=== PATIENT | male | born 1960 | race Caucasian/White ===

== ENCOUNTER 2020-05-11 07:30 | Inpatient (IN) | payer MEDICARE, OTHER ==
[2020-05-17 15:50] LABS: COVID AG,FIA SOURCE NASOPHARYNGEAL
[2020-05-18] MEDS ORDERED: RINGERS SOLUTION,LACTATED 1,000 ML IV ONE ×3 (06:00→08:09)
[2020-05-18] MEDS ORDERED: SODIUM CL IRRIG SOLN BAG 3,000 ML IRRIG ONE (06:39)
[2020-05-18] MEDS ORDERED: TRANEXAMIC ACID 1,000 MG/10 ML VIAL ONE (06:40)
[2020-05-18] MEDS ORDERED: BUPIVACAINE HCL/PF 0.5% 30 ML VIAL ONE (06:41)
[2020-05-18] MEDS ORDERED: SODIUM CHLORIDE 0.9% 100 ML ONE (06:43)
[2020-05-18 06:45] LABS: GLUCOMETER DEV NAME(LOC) SDS.; GLUCOSE,POINT OF CARE 88 MG/DL (70-110)
[2020-05-18] MEDS ORDERED: GABA-1181 PO (06:48)
[2020-05-18] MEDS ORDERED: OMEP20 PO (06:48)
[2020-05-18] MEDS ORDERED: EZET10TA13 PO (06:48)
[2020-05-18] MEDS ORDERED: ISOS10TA16 PO (06:48)
[2020-05-18] MEDS ORDERED: BUPIVACAINE LIPOSOME/PF 1.3%-13.3MG/ML SUSPENSION 20 ML VIAL INJ ONE (07:00)
[2020-05-18] MEDS ORDERED: SUGAMMADEX SODIUM 200 MG/2 ML VIAL IVP ONE (07:01)
[2020-05-18] MEDS ORDERED: FentaNYL CITRATE PF 100 MCG/2 ML VIAL IVP PRN (08:30)
[2020-05-18] MEDS ORDERED: MEPERIDINE-PF 25 MG/ML VIAL IVP PRN (08:30)
[2020-05-18] MEDS ORDERED: ACETAMINOPHEN 1000 MG/ISO-OSM 100 ML IV ONE (08:30)
[2020-05-18] MEDS ORDERED: ONDANSETRON HCL 4 MG/2 ML VIAL IVP PRN (09:45)
[2020-05-18] MEDS ORDERED: BISACODYL 10 MG RECTAL RECTAL SUPPOSITORY PR PRN (09:45)
[2020-05-18] MEDS ORDERED: HYDROmorphone 2 MG/ML VIAL ONE (09:47)
[2020-05-18] MEDS: HYDROmorphone 2 MG/ML VIAL IVP PRN ×3 (09:48→19:55)
[2020-05-18] MEDS ORDERED: MEPERIDINE-PF 25 MG/ML VIAL ONE (09:57)
[2020-05-18] MEDS ORDERED: TOBRAMYCIN/DEXAMETHASONE 3.5 GM OPHTHALMIC OINTMENT OS ONE (10:45)
[2020-05-18] MEDS ORDERED: NEOMYCIN/POLYMYXIN B/DEXAMETH 3.5 GM OPHTHALMIC OINTMENT OS ONE (10:45)
[2020-05-18] MEDS: OxyCODONE HCL/ACETAMINOPHEN 5-325 MG TABLET PO PRN ×3 (11:45→22:20)
[2020-05-18 11:58] VITALS: BP 148/77
[2020-05-18] MEDS ORDERED: MIDAZOLAM HCL 2 MG/2 ML VIAL IVP ONE (12:00)
[2020-05-18] MEDS ORDERED: DEXAMETHASONE SOD PHOS 4 MG/ML VIAL IVP ONE (12:00)
[2020-05-18] MEDS ORDERED: ROCURONIUM BROMIDE 10 MG/ML 5 ML VIAL IVP ONE (12:00)
[2020-05-18] MEDS ORDERED: ONDANSETRON HCL 4 MG/2 ML VIAL IVP ONE (12:00)
[2020-05-18] MEDS ORDERED: PROPOFOL 1% 20 ML VIAL IVP ONE (12:00)
[2020-05-18] MEDS ORDERED: METOCLOPRAMIDE HCL 5 MG/ML 2 ML VIAL IVP ONE (12:00)
[2020-05-18] MEDS ORDERED: LIDOCAINE/PF 2% 5 ML VIAL IM ONE (12:00)
[2020-05-18] MEDS ORDERED: FentaNYL CITRATE PF 100 MCG/2 ML VIAL IVP ONE (12:00)
[2020-05-18] MEDS: CeFAZolin 1 GM/DEXTROSE 50 ML IV SCH ×2 (15:59→23:37)
[2020-05-18] MEDS: CYCLOBENZAPRINE HCL 10 MG TABLET PO SCH ×2 (16:00→20:00)
[2020-05-18 16:29] VITALS: BP 127/70
[2020-05-18 19:44] VITALS: BP 140/80
[2020-05-18] MEDS: OXYGEN THERAPY IH SCH (20:00)
[2020-05-18] MEDS: FAMOTIDINE 20 MG TABLET PO SCH (20:00)
[2020-05-18] MEDS: DOCUSATE SODIUM 100 MG CAPSULE PO SCH (20:00)
[2020-05-18] MEDS: DiphenhydrAMINE HCL 50 MG/ML VIAL IVP PRN (22:19)
[2020-05-19] VITALS: BP 131/80
[2020-05-19] MEDS: OxyCODONE HCL/ACETAMINOPHEN 5-325 MG TABLET PO PRN ×2 (03:15→13:59)
[2020-05-19] MEDS: DEXTROSE 5%-LACTATED RINGERS 1,000 ML IV SCH ×3 (03:15→13:56)
[2020-05-19 04:00] VITALS: BP 125/75
[2020-05-19] MEDS: DiphenhydrAMINE HCL 50 MG/ML VIAL IVP PRN (05:57)
[2020-05-19 07:28] VITALS: BP 114/75
[2020-05-19] MEDS: OXYGEN THERAPY IH SCH (08:00)
[2020-05-19] MEDS: GABAPENTIN 300 MG CAPSULE PO SCH (09:44)
[2020-05-19] MEDS: DOCUSATE SODIUM 100 MG CAPSULE PO SCH ×2 (09:44→21:00)
[2020-05-19] MEDS: CYCLOBENZAPRINE HCL 10 MG TABLET PO SCH ×3 (09:45→21:04)
[2020-05-19] MEDS: FAMOTIDINE 20 MG TABLET PO SCH ×2 (09:46→21:00)
[2020-05-19] MEDS: HYDROmorphone 2 MG/ML VIAL IVP PRN ×3 (09:46→19:54)
[2020-05-19] MEDS: EZETIMIBE 10 MG TABLET PO SCH (09:48)
[2020-05-19] MEDS: RIVAROXABAN 10 MG TABLET PO SCH (09:48)
[2020-05-19] MEDS: ISOSORBIDE DINITRATE 10 MG TABLET PO SCH (09:52)
[2020-05-19 10:47] LABS: ANION GAP 6 mmol/L (8-16); CALCIUM, TOTAL 8.2 mg/dL (8.8-10.5); CARBON DIOXIDE 27 mmol/L (22-29); CHLORIDE 102 mmol/L (98-107); CREATININE 0.85 mg/dL (0.60-1.30); GLOMERULAR FILTR. RATE CALC > 60 mL/min (>60); GLUCOSE,RANDOM 85 mg/dL (70-110); POTASSIUM 3.7 mmol/L (3.5-5.1); SODIUM SERUM 135 mmol/L (136-145); UREA NITROGEN, BLOOD 12 mg/dL (7-18)
[2020-05-19 10:59] LABS: BASOPHILS % (AUTO) 0.3 % (0.0-2.0); EOSINOPHILS % (AUTO) 0.2 % (1.0-6.0); HEMATOCRIT 30.5 % (41-53); HEMOGLOBIN 10.3 g/dL (13.5-17.5); LYMPHOCYTES # (AUTO) 1.8 K/uL (1.0-4.8); LYMPHOCYTES % (AUTO) 30.7 % (22.0-44.0); MEAN CORPUSCULAR HEMOGLOBIN 30.3 pg (26.0-34.0); MEAN CORPUSCULAR HGB CONC 33.8 G/dL (31.0-37.0); MEAN CORPUSCULAR VOLUME 89 fL (80-100); MONOCYTES # (AUTO) 0.5 K/uL (0.1-1.0); NEUTROPHILS # (AUTO) 3.5 K/uL (1.8-7.7); NEUTROPHILS % (AUTO) 59.8 % (40.0-70.0); PLATELET COUNT (AUTO) 224 K/uL (150-450); RED BLOOD CELL COUNT(AUTO) 3.42 MIL/uL (4.50-5.90); RED CELL DISTRIBUTION WIDTH 14.2 % (11.5-14.5)
[2020-05-19 15:12] VITALS: BP 121/67
[2020-05-19 20:17] VITALS: BP 123/84
[2020-05-19 23:58] VITALS: BP 126/82
[2020-05-20] MEDS: HYDROmorphone 2 MG/ML VIAL IVP PRN ×2 (00:07→09:35)
[2020-05-20] MEDS: DEXTROSE 5%-LACTATED RINGERS 1,000 ML IV SCH ×2 (01:45→20:00)
[2020-05-20] MEDS: OxyCODONE HCL/ACETAMINOPHEN 5-325 MG TABLET PO PRN ×2 (03:46→23:05)
[2020-05-20 04:59] VITALS: BP 118/86
[2020-05-20 07:20] VITALS: BP 110/66
[2020-05-20] MEDS: OXYGEN THERAPY IH SCH (08:00)
[2020-05-20] MEDS: ISOSORBIDE DINITRATE 10 MG TABLET PO SCH (09:22)
[2020-05-20] MEDS: EZETIMIBE 10 MG TABLET PO SCH (09:22)
[2020-05-20] MEDS: DOCUSATE SODIUM 100 MG CAPSULE PO SCH ×2 (09:22→20:47)
[2020-05-20] MEDS: GABAPENTIN 300 MG CAPSULE PO SCH (09:22)
[2020-05-20] MEDS: FAMOTIDINE 20 MG TABLET PO SCH ×2 (09:39→20:47)
[2020-05-20] MEDS: CYCLOBENZAPRINE HCL 10 MG TABLET PO SCH ×3 (09:39→20:47)
[2020-05-20 16:00] VITALS: BP 127/71
[2020-05-20] MEDS ORDERED: ACETAMINOPHEN 325 MG TABLET PO PRN (17:00)
[2020-05-20] MEDS ORDERED: XARELTO PO (17:06)
[2020-05-20] MEDS ORDERED: PANT-31 PO (17:06)
[2020-05-20] MEDS: RIVAROXABAN 10 MG TABLET PO SCH (17:27)
[2020-05-20 20:17] VITALS: BP 106/62
[2020-05-20 23:17] LABS: APPEARANCE,URINE CLEAR (CLEAR); BILIRUBIN,URINE NEGATIVE (NEGATIVE); GLUCOSE, URINE (UA) NEGATIVE (NEGATIVE); KETONES,URINE NEGATIVE (NEGATIVE); LEUKOCYTE ESTERASE ,URINE NEGATIVE (NEGATIVE); NITRATE,URINE NEGATIVE (NEGATIVE); OCCULT BLOOD,URINE NEGATIVE (NEGATIVE); PH,URINE 7.5 (5.0-8.0); PROTEIN,URINE NEGATIVE (NEGATIVE); UROBILINOGEN,URINE 0.2 mg/dL (<=1.0)
[2020-05-21 00:10] VITALS: BP 130/69
[2020-05-21 04:44] VITALS: BP 102/62
[2020-05-21] MEDS: DEXTROSE 5%-LACTATED RINGERS 1,000 ML IV SCH (05:05)
[2020-05-21] MEDS: OxyCODONE HCL/ACETAMINOPHEN 5-325 MG TABLET PO PRN ×2 (06:03→14:35)
[2020-05-21 07:50] VITALS: BP 92/59
[2020-05-21] MEDS: ISOSORBIDE DINITRATE 10 MG TABLET PO SCH (09:00)
[2020-05-21] MEDS: EZETIMIBE 10 MG TABLET PO SCH (09:04)
[2020-05-21] MEDS: DOCUSATE SODIUM 100 MG CAPSULE PO SCH (09:10)
[2020-05-21] MEDS: CYCLOBENZAPRINE HCL 10 MG TABLET PO SCH (09:10)
[2020-05-21] MEDS: FAMOTIDINE 20 MG TABLET PO SCH (09:10)
[2020-05-21] MEDS: GABAPENTIN 300 MG CAPSULE PO SCH (09:10)
[2020-05-21 15:20] VITALS: BP 100/62
[2020-05-21 20:06] LABS: GLUCOMETER DEV NAME(LOC) 6S.1; GLUCOSE,POINT OF CARE 74 MG/DL (70-110)
== END 2020-05-21 16:44 | DRG 470 ==
LOC: 6N 05-18 05:58
PROVIDERS: ADMIT Orthopaedic Surgery; ATTEND Orthopaedic Surgery
PROC: 0SRD0J9 Replacement of Left Knee Joint with Synthetic Substitute, Cemented, Open Approach (ICD-10-PCS; principal; 2020-05-18 07:30)
DX: M17.12 Unilateral primary osteoarthritis, left knee (principal); D64.9 Anemia, unspecified; E78.00 Pure hypercholesterolemia, unspecified; E78.5 Hyperlipidemia, unspecified; I11.9 Hypertensive heart disease without heart failure; K21.9 Gastro-esophageal reflux disease without esophagitis; G62.9 Polyneuropathy, unspecified; Z20.822 Contact with and (suspected) exposure to COVID-19; Z79.899 Other long term (current) drug therapy
CPT/HCPCS: 87040; 87081; 87426; 88300; 93005; 93971; 97110; 97116; 97161; 97165; 97530; 97535; A9575; C9290; G0238; J0131; J0690; J1100; J1170; J1200; J2175; J2250; J2405; J2704; J2765; J3010; J3490; J7050; J7120; 36415-L1; 36415-TC; 71045-TC; 81003-TC; C1716; U0003